=== PATIENT | male | born 1950 | race Caucasian/White ===

== ENCOUNTER → 2024-05-07 11:14 | Outpatient (REF) | payer OTHER, SELFPAY | LOC: RAD 11:14 | PROVIDERS: ATTENDING PHYSICIAN Urology; FAMILY PHYSICIAN Family Medicine | DX: D41.02 Neoplasm of uncertain behavior of left kidney (principal) | CPT/HCPCS: 76770 ==

== ENCOUNTER 2024-10-09 06:18 | Day surgery (SDC) | payer OTHER, SELFPAY | END 2024-10-09 12:00 | disposition home or self-care (01) | LOC: GI 06:18 | PROVIDERS: ATTENDING PHYSICIAN Internal Medicine Gastroenterology; FAMILY PHYSICIAN Family Medicine | DX: Z12.11 Encounter for screening for malignant neoplasm of colon (principal); D12.2 Benign neoplasm of ascending colon; K64.8 Other hemorrhoids; Z86.0100 Personal history of colon polyps, unspecified | CPT/HCPCS: 45385; 88305 ==